=== PATIENT | male | born 1990 | race Caucasian/White ===

== ENCOUNTER 2020-01-23 13:58 | Emergency (ER) | payer OTHER ==
--- NOTE | 2020-01-23 14:19 | ED ---
Influenza-Like Illness - HPI Summary HPI Summary: 29 year old M arriving via private car complains of sore throat since 01/14, intermittent chest tightness x1 week, headache from 01/16 to , fatigue since yesterday 01/21 which has improved. No fever, cough, shortness of breath. Recent travel to [place]. Returned 01/14/2020. Had connecting flights through [employer] and [employer] States there was a diaphoretic passenger on plane with him. Also flew with two colleagues who had connecting flights through [employer]. He states they all work in [employer]. Also rcent travel to [place] in Nov 2019. No infectious symptoms when he returned. Symptoms rated 2/10 in severity. Symptoms aggravated by nothing. Symptoms alleviated by nothing. Medications reviewed. Allergies reviewed. - History of Current Complaint Chief Complaint: EDGeneral Time Seen by Provider: 01/23/20 14:12 Hx Obtained From: Patient Onset/Duration: Lasting Days, Still Present, Resolved Severity: Mild - 2/10 - Allergy/Home Medications Allergies/Adverse Reactions: Allergies Allergy/AdvReac Type Severity Reaction Status Date / Time clindamycin Allergy Hives Verified 01/23/20 14:06 Home Medications: Home Medications Ibuprofen [Ibu-200] 200 mg PO DAILY 01/23/20 [History Confirmed 01/23/20] guaiFENesin [Mucinex] 1 tab PO BID 01/23/20 [History Confirmed 01/23/20] PMH/Surg Hx/FS Hx/Imm Hx Endocrine/Hematology History: Denies: Hx Diabetes Cardiovascular History: Denies: Hx Hypertension Respiratory History: Denies: Hx Asthma - Surgical History Surgery Procedure, Year, and Place: tonsillectomy. tubes in eyes for drainage Infectious Disease History: No Infectious Disease History: Reports: Traveled Outside the in Last [address] - [facility], connecting through [employer] plus other connections. returned 01/14 - Family History Known Family History: Positive: Other - cancer father, lung cancer aunt and grandma - Social History Alcohol Use: Weekly Hx Substance Use: Yes Substance Use Type: Reports: Cocaine, Marijuana, Other - shrooms, LSD, Nancie Hx Tobacco Use: No Smoking Status (MU): Never Smoked Tobacco Review of Systems Positive: Fatigue. Negative: Fever Positive: Sore Throat Positive: Other - chest tightness Negative: Shortness Of Breath, Cough Positive: Headache All Other Systems Reviewed And Are Negative: Yes Physical Exam - Summary Physical Exam Summary: Constitutional: Well-developed, Well-nourished, Alert. (-) Distressed Skin: Warm, Dry HENT: Normocephalic; Atraumatic; s/p tonsillectomy Eyes: Conjunctiva normal Neck: Musculoskeletal ROM normal neck. (-) JVD, (-) Stridor, (-) Nuchal rigidity Cardio: Rhythm regular, rate normal, Heart sounds normal; Intact distal pulses; Radial pulses are 2+ and symmetric. (-) Murmur Pulmonary/Chest wall: Effort normal. (-) Respiratory distress, (-) Wheezes, (-) Rales Abd: Soft, (-) tenderness, (-) Distension, (-) Guarding, (-) Rebound Musculoskeletal: (-) Edema Lymph: (-) Cervical adenopathy Neuro: Alert, Oriented x3 Psych: Mood and affect Normal Triage Information Reviewed: Yes Vital Signs On Initial Exam: Initial Vitals Temp Pulse Resp BP Pulse Ox 98.4 F 88 16 161/88 97 01/23/20 14:00 01/23/20 14:00 01/23/20 14:00 01/23/20 14:00 01/23/20 14:00 Vital Signs Reviewed: Yes Procedures - Sedation Patient Received Moderate/Deep Sedation with Procedure: No Diagnostics - Vital Signs Vital Signs Temp Pulse Resp BP Pulse Ox 01/23/20 14:00 98.4 F 88 16 161/88 97 - Laboratory Result Diagrams: 01/23/20 15:11 01/23/20 15:11 Lab Statement: Any lab studies that have been ordered have been reviewed, and results considered in the medical decision making process. - Radiology CXR Radiology Interpretation Completed By: Radiologist - IMPRESSION: NO ACTIVE CARDIOPULMONARY DISEASE. ED physician has reviewed this imaging report. - EKG 1442 Cardiac Rate: NL - 80 BPM EKG Rhythm: Sinus Rhythm Summary of EKG Findings: An EKG at 1442 reveals normal sinus rhythm 80 BPM, T wave flattening in lead 3. No STEMI. No prior to compare. ED physician has reviewed and interpreted this EKG. Flu Symptom Course/Dx - Course Course Of Treatment: Patient presented with viral URI symptoms and CP, concerned for coronavirus. - does not warrant further w/u as per [facility] and CDC guidelines. Patient well appearing, with stable vitals. Patient does not have increased work of breathing, productive cough to suggest pneumonia. No headache , neck pain or nuchal rigidity. Tolerating by mouth. Labs notable for normal WBC, CXR negative. EKG sinus. Troponin negative. Do not suspect ACS. Heart score 1. Perc negative, do not suspect PE. Likely viral syndrome. Plan for discharge w symptomatic control and will return for worsening symptoms. - Diagnoses Provider Diagnoses: Viral syndrome, Chest pain Discharge ED - Sign-Out/Discharge Documenting (check all that apply): Patient Departure - Discharge Plan Condition: Stable Disposition: HOME Patient Education Materials: Chest Pain (ED), Viral Syndrome (ED) Referrals: [facility] [Outside] Additional Instructions: You were seen in the emergency department for sore throat, chest pain, malaise. Your x-ray, blood work and EKG did not show a cause for your symptoms. Please follow up with your primary care doctor in next 2-3 days and return to emergency department for chest pain, trouble breathing, fevers, worsening or concerning symptoms. It was a pleasure taking care of you today. - Billing Disposition and Condition Condition: STABLE Disposition: Home - Attestation Statements Document Initiated by Luna: Yes Documenting Scribe: Ofe Egan Provider For Whom Luna is Documenting (Include Credential): Fred Lenz MD Scribe Attestation: IOfe, scribed for Fred Lenz MD on 01/23/20 at 1554. Scribe Documentation Reviewed: Yes Provider Attestation: The documentation as recorded by the Ofe starr accurately reflects the service I personally performed and the decisions made by me, Fred Lenz MD Status of Scribgarret Document: Viewed
[2020-01-23 15:27] LABS: ABS Eosinophils 0.1 10^3/ul (0-0.6); ABS Lymphocytes 2.2 10^3/ul (1.0-4.8); ABS Monocytes 0.4 10^3/ul (0-0.8); ABS Neutrophils 2.4 10^3/ul (1.5-7.7); Eosinophil % 1.1 %; Hematocrit 42 % (42-52); Hemoglobin 15.1 g/dL (14.0-18.0); Lymphocyte % 42.7 %; Mean Corpuscular HGB Conc 36 g/dL (31-36); Mean Corpuscular Hemoglobin 31 pg (27-31); Mean Corpuscular Volume 87 fL (80-94); Nucleated Red Blood Cells % 0.4; Platelet Count 200 10^3/uL (150-450); Red Blood Count 4.88 10^6 /uL (4.18-5.48); Red Cell Distribution Width 14 % (10-15); White Blood Count 5.1 10^3/uL (3.5-10.8)
[2020-01-23 15:47] LABS: Albumin 4.3 g/dL (3.2-5.2); Albumin/Globulin Ratio 1.6 (1-3); BUN/Creatinine Ratio 17.9 (8-20); Calcium 9.4 mg/dL (8.6-10.3); EGFR African American 111.9 (>60); EGFR Non-African American 92.5 (>60); Globulin 2.7 g/dL (2-4); Potassium 4.1 mmol/L (3.5-5.0); Total Bilirubin 0.5 mg/dL (0.2-1.0)
[2020-01-23 16:15] VITALS: BP 130/73
== END 2020-01-23 16:13 | disposition home or self-care (01) ==
LOC: ED 13:58
DX: B34.9 Viral infection, unspecified (principal); R07.89 Other chest pain; Z88.1 Allergy status to other antibiotic agents
CPT/HCPCS: 36415; 71046; 80053; 84484; 85025; 93005; 99283